=== PATIENT | female | born 1960 | race African-American/Black ===

== ENCOUNTER 2017-09-04 23:20 | Emergency (ER) | payer MEDICAID ==
[~2017-09-04] VITALS: Ht 160 cm; Wt 84.0 kg
[2017-09-05] MEDS ORDERED: METO1TAB40 PO (00:27)
[2017-09-05] MEDS ORDERED: ASPI-1159 PO (00:28)
[2017-09-05] MEDS ORDERED: HYDR-4135 PO (00:28)
[2017-09-05] MEDS ORDERED: FOLI-43 PO (00:29)
[2017-09-05] MEDS ORDERED: FERR220S12 PO (00:30)
[2017-09-05 02:03] VITALS: BP 172/65
== END 2017-09-05 02:04 | disposition home or self-care (01) ==
LOC: ER 23:21
DX: I10 Essential (primary) hypertension (principal); Z86.59 Personal history of other mental and behavioral disorders; Z79.82 Long term (current) use of aspirin; Z79.899 Other long term (current) drug therapy
CPT/HCPCS: 99283; Z7610